=== PATIENT | male | born 1950 | race Caucasian/White ===

== ENCOUNTER 2024-09-17 11:00 | Inpatient (IN) | payer OTHER, MEDICARE ==
[~2024-09-17] VITALS: Ht 175.3 cm; Wt 74.5 kg
[~2024-09-17 11:00] MED LIST: AMLO2.5T2 PO; ATOR20TA PO; LOSA-415 PO
--- NOTE | 2024-09-17 11:26 | Physician Documentation ---
History of Present Illness ~ Chief Complaint: Stroke Alert Stated Complaint: STROKE ALERT Time Seen by MD: 11:10 Source: patient, EMS HPI 74-year-old male, history of reported TIA, who presents with stroke-like symptoms. Per EMS, the patient was at the [facility], at around 10:30 a.m., when they noticed that he seemed to have difficulty with the speech and possibly some left arm weakness. When EMS arrived, he seemed to have some difficulty with speech. He also may have had some mild left facial droop Here now in the ED, the patient denies any current symptoms. He does not really remember what happened at the [facility]. He currently denies headache, dizziness, vision changes, difficulty with speech, tingling numbness or weakness to his extremities, or other. He denies any fevers or recent infectious symptoms. He does report a history of TIA, does not know exactly what symptoms he had and says it was a couple of years ago. Medication Reconciliation Allergies: Coded Allergies: No Known Allergies (Unverified , 09/29/23) Scheduled Amlodipine* (Norvasc*), 2 TAB PO DAILY, (Reported) Discontinued Medications Atorvastatin Calcium* (Lipitor*), 1 TAB PO DAILY, (Reported) Discontinued Reason: patient no longer taking Losartan Potassium* (Cozaar*), 2 TAB PO DAILY, (Reported) Discontinued Reason: patient no longer taking Past Medical History Past Surgical History: noncontributory Patient History: Patient reports no known family medical history. Alcohol Use: Abuse Drug Use: none Occupation: retired Review of Systems Neurological: Reports: speech problem, left sided weakness; Denies: headache, dizziness Physical Exam Vital Signs: Temperature: 97.4, Source: Oral, Heart Rate: 79, Respiratory Rate: 14, BP: 173/86, Pulse Oximetry: 97, Weight: 74.500 Oxygen Flow Rate: 0 General Appearance General: This is a pleasant and frail-appearing elderly man sitting calmly in bed HEENT: Atraumatic, oropharynx appears dry Heart: Regular rate and rhythm, normal-appearing peripheral perfusion Lungs: normal work of breathing, normal oxygen saturation on room air Abdomen: Soft, nondistended, nontender all quadrants Extremities: Warm and well-perfused, no significant edema Neuro: Alert and oriented. No facial droop. Normal extraocular movements and pupils are symmetric. Normal sensation to light touch bilateral on the face. Normal sensation light touch in the arms and legs. Grossly symmetric strength in the arms and legs. He is able to stand up. Normal currlu-gl-azox testing bilateral. No focal weakness or abnormality. Psychiatric: Calm and cooperative with exam Progress Results/Orders Results/Orders Orders - DOROTHY WADDELL MD Monitor (09/17/24 11:21) 2 Large Bore Ivs (09/17/24 11:21) Chest,Single View (09/17/24 11:21) Accucheck (09/17/24 11:21) Ct Stroke Alert (09/17/24 11:21) [place] Prov.Neuro Consult (09/17/24 11:22) Urinalysis, Cult If Indicated (09/17/24 11:27) Page Hospitalist (09/17/24 13:35) Completed Orders - DOROTHY WADDELL MD Cbc/Diff (09/17/24 11:21) Electrocardiogram (09/17/24 11:21) Chest,Single View (09/17/24 11:21) Ct Stroke Alert (09/17/24 11:21) BMP (09/17/24 11:21) PTT (09/17/24 11:21) Pt Inr (09/17/24 11:21) Aspirin 81mg Chew Tablet (Aspirin 81mg C (09/17/24 12:20) Medications Received in ER Medications (Trade) Dose Ordered Sig/Cal Route PRN Reason Start Time Stop Time Status Last Admin Dose Admin (aspirin 81MG chew tablet) 324 mg ONCE ONCE PO 09/17/24 12:20 09/17/24 12:21 DC 09/17/24 13:20 324 MG Sodium Chloride 1,000 ml @ 70 mls/hr [id number] IV 09/17/24 13:50 09/17/24 17:30 70 MLS/HR Vital Signs 09/17/24 09/17/24 09/17/24 09/17/24 11:03 11:17 11:25 11:47 Temp 97.6 97.6 Pulse 84 79 72 Resp 17 14 18 B/P (MAP) 164/87 173/86 151/80 (103) Pulse Ox 97 97 95 O2 Flow Rate 0 0 09/17/24 13:20 Temp 97.6 Pulse 75 Resp 16 B/P (MAP) 134/79 (97) Pulse Ox 94 O2 Flow Rate 0 Laboratory Tests Test 09/17/24 11:26 White Blood Count 5.1 Red Blood Count 5.09 Hemoglobin 17.1 Hematocrit 48.1 Mean Corpuscular Volume 94.5 Mean Corpuscular Hemoglobin 33.6 H Mean Corpuscular Hemoglobin Concent 35.6 Red Cell Distribution Width 12.6 Platelet Count 219 Mean Platelet Volume 7.5 Neutrophils (%) (Auto) 68.9 Lymphocytes (%) (Auto) 21.1 Monocytes (%) (Auto) 7.6 Eosinophils (%) (Auto) 1.4 Basophils (%) (Auto) 1.0 Neutrophils # (Auto) 3.5 Lymphocytes # (Auto) 1.1 Monocytes # (Auto) 0.4 Eosinophils # (Auto) 0.1 Basophils # (Auto) 0.1 CBC Comment Prothrombin Time 10.6 INR International Normalized Ratio 1.0 Activated Partial Thromboplast Time 25 Coagulation Comments Sodium Level 137 Potassium Level 4.2 Chloride Level 99 Carbon Dioxide Level 27.4 Anion Gap 11 Blood Urea Nitrogen 14 Creatinine 1.05 Estimated GFR/1.73 m2 69 BUN/Creatinine Ratio 13.3 Glucose Level 115 H Calcium Level 8.5 Albumin 3.7 Chemistry Comments EKG/XRAY/CT/US/VASC/MRI EKG : Additional Comment I personally interpreted the EKG and this shows: Sinus rhythm, rate of 78, QTC 466, no STEMI Consults/PCP Consults/PCP : Additional Comment Consult: Stroke neurology consulted for evaluation. They recommended admission and treatment for stroke/TIA. Consult: I spoke to the internal medicine service, for admission in the hospital Medical Decision Making Additional info obtained from: old records Findings I reviewed the patient's past records, he does have a history of pyelonephritis with altered mental status Additional Information Differential includes stroke, TIA, intracranial hemorrhage, seizure, electrolyte derangement, infection Assessment The patient presents as a stroke alert. By time of my evaluation his symptoms seem to have mostly resolved. His history and exam seem most consistent with a TIA or possibly small stroke. Head CT without intracranial hemorrhage. Stroke Neurology consulted emergently. They recommend admission for further workup and testing. Departure Impression: Primary Impression: Transient cerebral ischemia Referrals: NO PRIMARY CARE PROVIDER (PCP) Critical Care Note Critical Care Note Critical Care Note The very real possibility of a deterioration of this patient's condition required the highest level of my preparedness for sudden, emergent intervention. I provided critical care services, which included medication orders, frequent reevaluations of the patient's condition and response to treatment, ordering and reviewing test results, and discussing the case with various consultants. Excludes time spent performing separately billable procedures. The critical care time associated with the care of the patient was 45 minutes in the management of an acute stroke/TIA Signature Scribe Signature: nile Attestation: DOROTHY Solano MD September 17, 2024 11:26
--- NOTE | 2024-09-17 11:29 | ELECTROCARDIOGRAPH REPORT ---
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
[2024-09-17 11:42] LABS: ALBUMIN 3.7 G/DL (3.4-5.0); ANION GAP 11 (8-16); BASOPHILS # (AUTO) 0.1 X10'3 (0-0.2); BLOOD UREA NITROGEN 14 MG/DL (7-18); BUN/CREATININE RATIO 13.3 (10.0-20.0); CALCIUM 8.5 MG/DL (8.5-10.1); CHLORIDE 99 MMOL/L (99-107); CREATININE 1.05 MG/DL (0.60-1.10); EOSINOPHILS # (AUTO) 0.1 X10'3 (0-0.9); GLUCOSE 115 MG/DL (70-104); LYMPHOCYTES # (AUTO) 1.1 X10'3 (1.1-4.8); POTASSIUM 4.2 MMOL/L (3.5-5.1); SODIUM 137 MMOL/L (135-145); TOTAL CARBON DIOXIDE 27.4 MMOL/L (24-32); eCRCL 61 ML/MIN; eGFR 69 ML/MIN
[2024-09-17 11:45] LABS: EOSINOPHILS % (AUTO) 1.4 % (0-6); HEMATOCRIT 48.1 % (42.0-52.0); HEMOGLOBIN 17.1 g/dl (14.0-17.9); LYMPHOCYTES % (AUTO) 21.1 % (21-51); MEAN CORPUSCULAR HEMOGLOBIN 33.6 PG (27.0-31.0); MEAN CORPUSCULAR HGB CONC 35.6 g/dL (33.0-36.5); MEAN CORPUSCULAR VOLUME 94.5 FL (78-98); MEAN PLATELET VOLUME 7.5 FL (7.4-10.4); MONOCYTES # (AUTO) 0.4 X10'3 (0-0.9); MONOCYTES % (AUTO) 7.6 % (2-12); NEUTROPHILS # (AUTO) 3.5 X10'3 (1.8-7.7); NEUTROPHILS % (AUTO) 68.9 % (42-75); PLATELET COUNT 219 X10'3 (140-440); RED BLOOD COUNT 5.09 X10'6 (4.70-6.10); RED CELL DISTRIBUTION WIDTH 12.6 % (11.5-14.5); WHITE BLOOD COUNT 5.1 X10'3 (4.5-11.0)
[2024-09-17 11:46] LABS: APTT 25 SECONDS (22-32); PROTHROMBIN TIME 10.6 SECONDS (9.0-12.0)
--- NOTE | 2024-09-17 11:57 | RADIOLOGY REPORT ---
Procedure: DI CHEST,SINGLE VIEW 09/17/2024 11:28 AM Indication: Stroke Alert Comparison: DI CHEST,SINGLE VIEW on DOS: 09/28/23 TECHNIQUE: DI CHEST,SINGLE VIEW FINDINGS: Medical devices: None. Cardiomediastinal: The heart is mildly enlarged. Pulmonary vasculature is prominent. Lungs: No focal pulmonary opacity is seen. The costophrenic angles are clear. No pneumothorax. Bones/soft tissues: No acute abnormality is noted. IMPRESSION: 1. No acute cardiopulmonary disease.
--- NOTE | 2024-09-17 12:06 | RADIOLOGY REPORT ---
EXAM: CT CT STROKE ALERT HISTORY: Stroke Alert COMPARISON: CT CT HEAD on DOS: 09/29/23 TECHNIQUE: Axial images were obtained and reformatted in coronal and sagittal planes. All CT scans at this medical facility are performed using dose modulation techniques as appropriate t o a performed exam including the following: Automated exposure control was utilized; adjustment of th e MA and/or KV according to patient size; and use of iterative reconstruction technique. CT Dose: CTDI volume is 65 mGy. Dose-length product is 1264.2 mGy*cm FINDINGS: Supratentorial Region: No evidence for large acute territorial ischemia. No intracranial hemorrhage is noted. Confluent white matter hypoattenuating foci are noted bilaterally, which typically reflect chronic microvascular ischemic changes. Posterior Fossa: No acute abnormality. Brainstem: Unremarkable. Sellar/Suprasellar Region: Unremarkable. Ventricles, Cisterns, Sulci: Age-appropriate. Orbits: Unremarkable. Paranasal Sinuses: Unremarkable. Mastoid Air Cells: Unremarkable. Vasculature: Intracranial arterial calcified plaque formation noted. Bones/Soft Tissues: No acute abnormality. Other: None. IMPRESSION: 1.No acute intracranial process. Critical Result: Stroke Alert Findings discussed with , at 09/17/2024 11:52 AM, and acknowledged receipt and understanding of the f indings. ..
[2024-09-17] MEDS: aspirin 81mg tab.chew PO ONE (13:20)
--- NOTE | 2024-09-17 13:32 | [facility] CONSULT REPORT ---
[facility] Procedure Note [facility] Procedure Note Consult [facility] Note # Demographics Consult Type: Acute Stroke Level 2 (4.5-24 hrs) Patient Location: Emergency Room First Name: JUANA Last Name: EDWIN Date of : 1950 Age: 74 Gender: Male Facility: [facility] Time of Initial Page (): 09/17/2024 11:41 Time of Return Call (): 09/17/2024 11:42 # HPI History: [id number] Patient is coming to ER difficulty talking and left arm weakness; when EMS came he had left arm weakness and left facial droop. His symptoms have resolved and lasted less than an hour. H/O TIA, HTN Duration: - resolved # Scores Level of Consciousness 1a: [0] = Alert; keenly responsive LOC Questions 1b: [0] = Answers both questions correctly LOC Commands 1c: [0] = Performs both tasks correctly Best Gaze 2: [0] = Normal Visual 3: [0] = No visual loss Facial Palsy 4: [0] = Normal symmetrical movements Motor Arm Left 5a: [0] = No drift Motor Arm Right 5b: [0] = No drift Motor Leg Left 6a: [0] = No drift Motor Leg Right 6b: [0] = No drift Limb Ataxia 7: [0] = Absent Sensory 8: [0] = Normal Best Language 9: [0] = No aphasia Dysarthria 10: [0] = Normal Extinction and Inattention 11: [0] = No abnormality NIHSS Total: 0 ABCD2 Score for TIA: [1] = Age >/= 60 years: Yes [1] = BP >/= 140/90: Yes [1] = Clinical features of the TIA: speech disturbances without weakness [1] = Duration of symptoms: 10-59 minutes [0] = History of diabetes: No ABCD2 Total: 4 # Assessment Impression: - Transient Ischemic Attack # Plan Thrombolytic/Intervention: NOT IV Thrombolysis or IA Intervention candidate Thrombolytic Exclusion (< 3 hour window): - NIHSS = 0 Intraarterial Exclusion: - clinical exam not consistent with presence of large vessel occlusion (LVO), can reconsider if LVO found on vascular imaging Modified Gus Scale (mRS) pre-stroke: [0] = No symptoms at all. Labs: - hemoglobin A1c - lipid panel - comprehensive metabolic panel - CBC Imaging: (urgency: routine): - MRI Brain without contrast Diagnostic Test: - echo without bubble study Medication: - start statin with goal of LDL < 70 - aspirin 81 mg PLUS clopidogrel (Plavix) 75 mg for 21 days, then monotherapy therafter DVT Prophylaxis: - SCD Other: - If patient has any neurological deterioration please call me back immediately - LDL < 70 - permissive hypertension - telemetry monitoring - will need event monitor or loop recorder as outpatient if atrial fibrillation not found as inpatient - neurology referral as outpatient - I have discussed my recommendations with the referring provider # Demographics First Name: JUANA Last Name: EDWIN Facility: [facility] Neuro Consult Order placed for: Yes NICOLE SANCHEZ MD September 17, 2024 13:32
[2024-09-17] MEDS ORDERED: acetaminophen 325mg tablet PO PRN ×2 (13:50)
[2024-09-17] MEDS ORDERED: magnesium sulf-water 2g/50mL 50 ML IV PRN (13:50)
[2024-09-17] MEDS ORDERED: ondansetron/PF 4mg/2ml inj IV PRN (13:50)
[2024-09-17] MEDS ORDERED: potassium Cl 40MEQ/1/2NS 520ml 520 ML IV PRN (13:50)
[2024-09-17] MEDS ORDERED: potassium Cl 20 mEq SR tablet PO PRN ×2 (13:50)
[2024-09-17] MEDS ORDERED: magnesium sulf-water 4G/100mL 100 ML IV PRN (13:50)
[2024-09-17] MEDS ORDERED: magnesium Cl slow-release 64mg tablet PO PRN (13:50)
--- NOTE | 2024-09-17 14:44 | HISTORY AND PHYSICAL-Residence ---
History & Physical Providers to CC Resident Creating Document: GODFREY RODRIGUEZ RES ~ History of Present Illness Primary Medical Doctor: kenan Reason for Admit\Complaint: LEFT JANEEN PARESIS History of Present Illness 73-year-old male with past medical history of hypertension, hyperlipidemia, urinary incontinence, previous episodes of TIA presented to the ER with a chief complaints of weakness of left lower extremity and left upper extremity. Endorses weakness of left lower extremity and left upper extremity, sudden in onset while he was in [employer] at 10:20 a.m. in the morning and lasted for 20-25 minutes and he is completely is asymptomatic in ER. He could not able to lift the left lower extremity while sitting in the chair in [employer] and left upper extremity is drooping when he tries to lift the left upper shoulder. Endorses drooping of the face on the left side for a brief period. Denied slurring of speech, deviation of angle of mouth, blurring of vision, chest pain, palpitations, shortness of breath, wheezing, syncope abdominal pain, pedal edema. Bladder and bowel is normal. Sleep and appetite is normal. Discussed code status with the patient and patient wants to be in full code. Allergies: Coded Allergies: No Known Allergies (Unverified , 09/29/23) Home Medications Home Medications Active Reported Cozaar* (Losartan Potassium) 25 Mg Tablet 2 Tab PO DAILY 30 Days Norvasc* (Amlodipine Besylate) 2.5 Mg Tablet 2 Tab PO DAILY 30 Days Lipitor* (Atorvastatin Calcium) 20 Mg Tablet 1 Tab PO DAILY 30 Days Past Medical History Past Medical History Hypertension Hyperlipidemia Urinary incontinence History of fall History of TIA Past Surgical History Surgical History Comment LEFT INDEX FINGER SURGERY RIGHT KNEE MENISCUS TEAR AND KNEE SURGERY AT THE AGE OF 19 RIGHT ELBOW DISLOCATION Family History Family History: Patient reports no known family medical history. Past Social History Social History Comment ENDORSES DRINKING FOR FOUR IPA BEERS PER DAY. Smoking: Non-Smoker Alcohol Use: Abuse Drug Use: None Lives with: Family Lives In: Home Occupation: retired ROS All Other Systems: Reviewed and Negative ROS REVIEWED IN FULL AND NEGATIVE EXCEPT FOR POSITIVE PERTINENT IN HPI Neurological: Reports: speech problem, left sided weakness; Denies: headache, dizziness Exam Vitals: Vital Signs Date Time Temp Pulse Resp B/P (MAP) Pulse Ox O2 Delivery O2 Flow Rate FiO2 09/17/24 13:20 97.6 75 16 134/79 (97) 94 0 General: General: This is a pleasant and frail-appearing elderly man lying down calmly in bed. Not in acute distress. No facial asymmetry. No drooping of eyelids. HEENT: Atraumatic, oropharynx appears dry Heart: Regular rate and rhythm, no murmurs /gallops /rubs normal-appearing peripheral perfusion Lungs: Normal breath sounds are heard throughout the lung. No crepitations and wheezing. normal work of breathing. Abdomen: Soft, nondistended, nontender all quadrants Extremities: Warm and well-perfused, no significant edema Neuro: Alert and oriented. No facial droop. Normal extraocular movements and pupils are symmetric. Normal sensation to light touch bilateral on the face. Normal sensation light touch in the arms and legs. Grossly symmetric strength in the arms and legs. He is able to stand up. Normal tone, deep tendon reflexes are intact. Normal [id number] testing bilateral. No focal weakness or abnormality. Psychiatric: Calm and cooperative with exam Diagnostic Data Last Recorded Lab Results: 09/17/24 1126 09/17/24 1126 Diagnostic Data: Laboratory Tests Test 09/17/24 11:26 Prothrombin Time 10.6 SECONDS (9.0-12.0) INR International Normalized Ratio 1.0 INR Activated Partial Thromboplast Time 25 SECONDS (22-32) Coagulation Comments CT brain Chronic microvascular ischemic changes is present Advance Care Planning Advanced Care plannin - 30 Minutes Additional Plan TIA ABCD2 SCORE IS FOUR CT showing chronic micro vascular ischemic changes Consulted tele neurologist, Walter Carmichael. Recommended for MRI, echocardiogram, aspirin 81 mg, clopidogrel 75 mg Ordered A1c, lipid panel a telemetry and loop recorder and outpatient neurological referral Ordered MRI brain and MRA, carotid Doppler, echocardiogram with a bubble study We will continue aspirin 81 mg and Plavix 70 mg for 21 days and then monotherapy thereafter as per Dr. Jacobo, tele neurologist. We are allowing permissive hypertension on telemetry monitoring SCDs for DVT prophylaxis We will be monitoring the patient on telemetry about any atrial fibrillation episodes if not found here we will recommend for outpatient follow up for event or loop recorder. HYPERTENSION Patient is on amlodipine 5 mg at home and losartan 50 mg daily at home Blood pressures are in 150s and we are allowing permissive hypertension We will continue to monitor blood pressure. HYPERLIPIDEMIA LDL goal is less than 70 Patient is on atorvastatin 20 mg p.o. daily at home ALCOHOL USE DISORDER On detox protocol Code status: Full code Diet: NPO till swallow test and then low-salt diet DVT prophylaxis: SCDs, hepari PT: Ordered Prognosis: Guarded Godfrey Rodriguez resident Date of Service: September 17, 2024 Billing Provider: CARROLL FLANAGAN MD Common Visit Codes: 71288-THPVCXD INP/OBS CARE (HIGH) Secondary Visit Codes: 15372-YARLCFXC CARE PLAN 30 MINUTES GODFREY RODRIGUEZ, [facility] September 17, 2024 14:44 CARROLL FLANAGAN MD September 18, 2024 09:35
[2024-09-17] MEDS ORDERED: haloperidol lactate 5mg/ml inj IM PRN (14:55)
[2024-09-17] MEDS ORDERED: LORazepam 1 MG tablet PO PRN (14:55)
[2024-09-17] MEDS ORDERED: LORazepam 2 mg/ml vial IV PRN (14:55)
[2024-09-17] MEDS ORDERED: dextrose 50%-water 50ml dispensing syringe IV PRN (14:55)
--- NOTE | 2024-09-17 17:02 | VASCULAR REPORT ---
Carotid Duplex Date: 09/17/2024 04:05 PM Clinical History: Stroke Comparison: None Technique: Duplex Doppler evaluation of the extracranial carotid and vertebral arteries including col or Doppler and spectral/pulsed waveform analysis was performed. Findings: RIGHT SIDE: The peak systolic velocities are 88 cm/s in the distal CCA and 89 cm/s in the proximal ICA.The ICA/CC A ratio is less than 2. The external carotid artery is patent with peak systolic velocity of 48 cm/s proximally. The right vertebral artery is not definitely visualized. LEFT SIDE: The peak systolic velocities are 48 cm/s in the distal CCA and 74 cm/s in the proximal ICA.. The ICA/ CCA ratio is less than 2. The external carotid artery is patent with peak systolic velocity of 97 cm/s proximally. There is appropriate antegrade flow in the left vertebral artery. IMPRESSION: No hemodynamically significant stenosis noted in the right carotid system. No hemodynamically significant stenosis noted in the left carotid system. Right vertebral artery is nonvisualized. Reference: Radiology 2003; 229:[id number]
[2024-09-17] MEDS: folic acid 1mg/0.2ml inj IV SCH (17:29)
[2024-09-17] MEDS: normal saline 1000ml 1,000 ML IV SCH (17:30)
--- NOTE | 2024-09-17 17:43 | RADIOLOGY REPORT ---
EXAM: MR MRI HEAD HISTORY: CVA/TIA COMPARISON: MR MRI HEAD on DOS: 10/01/23, CT CT HEAD on DOS: 09/29/23 TECHNIQUE: MRI was performed utilizing multiple appropriate imaging planes and pulse sequences. FINDINGS: SUPRATENTORIAL REGION: No evidence for acute ischemia or intracranial hemorrhage. Scattered ill-defi roberta FLAIR hyperintensities are noted within the bilateral periventricular region, dean radiata and subcortical white matter. POSTERIOR FOSSA: Unremarkable. BRAINSTEM: Unremarkable. SELLAR/SUPRASELLAR REGION: Unremarkable. VENTRICLES, CISTERNS, SULCI: Age-appropriate. ORBITS: Unremarkable. PARANASAL SINUSES: Unremarkable. MASTOID AIR CELLS: Moderate left mastoid effusion. VASCULATURE: Unremarkable. BONES/ SOFT TISSUES: Unremarkable. OTHER: None. IMPRESSION: 1. No acute intracranial process identified. 2. Moderate global cortical atrophy and chronic microvascular ischemic changes. 3. Moderate left mastoid effusion.
[2024-09-17] MEDS: heparin, porcine 5000 units/ml vial SQ SCH (20:15)
[2024-09-17] MEDS: thiamine 100mg/ml 2ml inj. IV SCH (20:15)
--- NOTE | 2024-09-17 21:40 | RADIOLOGY REPORT ---
PROCEDURE: MR MRA HEAD INDICATION: CVA/TIA Exam Date: 09/17/2024 04:47 PM COMPARISON: None TECHNIQUE: MRA head without intravenous contrast. 3D image postprocessing was performed on a dedicated workstation and images were used for interpretat ion and reporting. FINDINGS: MRA head: There is preserved enhancement within the bilateral distal internal carotid arteries. There is prese rved enhancement within the anterior and middle cerebral arteries. There is preserved enhancement wi thin the vertebral arteries, basilar artery, cerebellar arteries and posterior cerebral arteries. Th ere is no evidence of hemodynamically significant intracranial stenosis, proximal occlusion or aneury sm. No abnormal venous signal is seen. IMPRESSION: No evidence of hemodynamically significant intracranial stenosis, proximal occlusion or aneurysm.
[2024-09-17 22:00] VITALS: BP 167/91; PULSE 60; RESP 16; TEMP 96.8; O2SAT 94
[2024-09-18] VITALS (10 sets, daily range): BP systolic 130–173; BP diastolic 87–98; PULSE 77–86; RESP 16–24; TEMP 97–98.2; O2SAT 94–97
[2024-09-18 05:56] LABS: BASOPHILS # (AUTO) 0.1 X10'3 (0-0.2); EOSINOPHILS # (AUTO) 0.1 X10'3 (0-0.9); EOSINOPHILS % (AUTO) 2.6 % (0-6); HEMATOCRIT 44.6 % (42.0-52.0); HEMOGLOBIN 15.8 g/dl (14.0-17.9); LYMPHOCYTES # (AUTO) 1.3 X10'3 (1.1-4.8); LYMPHOCYTES % (AUTO) 27.5 % (21-51); MEAN CORPUSCULAR HEMOGLOBIN 33.5 PG (27.0-31.0); MEAN CORPUSCULAR HGB CONC 35.5 g/dL (33.0-36.5); MEAN CORPUSCULAR VOLUME 94.5 FL (78-98); MEAN PLATELET VOLUME 7.7 FL (7.4-10.4); MONOCYTES # (AUTO) 0.5 X10'3 (0-0.9); MONOCYTES % (AUTO) 10.8 % (2-12); NEUTROPHILS # (AUTO) 2.8 X10'3 (1.8-7.7); NEUTROPHILS % (AUTO) 58.1 % (42-75); PLATELET COUNT 196 X10'3 (140-440); RED BLOOD COUNT 4.72 X10'6 (4.70-6.10); RED CELL DISTRIBUTION WIDTH 12.8 % (11.5-14.5); WHITE BLOOD COUNT 4.9 X10'3 (4.5-11.0)
[2024-09-18 06:11] LABS: ALANINE AMINOTRANSFERASE 29 U/L (12-78); ALBUMIN 3.3 G/DL (3.4-5.0); ALKALINE PHOSPHATASE 64 IU/L (46-116); ASPARTATE AMINO TRANSFERASE 28 U/L (10-37); BILIRUBIN,TOTAL 2.8 MG/DL (0.1-1.0); BLOOD UREA NITROGEN 10 MG/DL (7-18); BUN/CREATININE RATIO 12.2 (10.0-20.0); CALCIUM 8.2 MG/DL (8.5-10.1); CHLORIDE 102 MMOL/L (99-107); CREATININE 0.82 MG/DL (0.60-1.10); GLUCOSE 103 MG/DL (70-104); POTASSIUM 3.7 MMOL/L (3.5-5.1); SODIUM 137 MMOL/L (135-145); TOTAL PROTEIN 6.5 G/DL (6.4-8.2); eCRCL 78 ML/MIN; eGFR > 90 ML/MIN
[2024-09-18 06:12] LABS: ANION GAP 7 (8-16); TOTAL CARBON DIOXIDE 27.6 MMOL/L (24-32)
--- NOTE | 2024-09-18 07:18 | CARDIOLOGY REPORT ---
APPROVED REPORT EXAM: Comprehensive 2D, Doppler, and color-flow Echocardiogram. 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 136.6 cm/s AoV VTI 24.9 cm AO Peak GR. 7.5 mmHg AO Mean GR. 4 mmHg LVOT VTI 19.30 cm LVOT Peak Anand. 90.0 cm/s YANE(VTI)/BSA 2.77 cm2/m2 YANE (VTI) 2.77 cm2 Mitral Valve MV E Velocity 51.2 cm/s MV Peak Gr. 3 mmHg MV DECEL TIME 244 ms MV A Velocity 95.9 cm/s MV PHT 56 ms E/A Ratio 0.5 MVA (PHT) 3.93 cm2 MV VMax85.9 cm/s TDI Lateral E' P. V10.76 cm/s E/Lateral E' 4.8 Tricuspid Valve TR P. Velocity 130 cm/s RAP ESTIMATE 10 mmHg TR Peak Gr. 7 mmHg RVSP 17 mmHg LEFT VENTRICLE Normal LV size and wall thickness. Overall systolic function is normal. LVEF is 70%. RIGHT VENTRICLE RV is normal size and function. ATRIA The left atrium size is normal. AORTIC VALVE AV is probably trileaflet with mild sclerosis without stenosis. No insufficiency. MITRAL VALVE Mild mitral annular calcification without stenosis. Trace regurgitation TRICUSPID VALVE Tricuspid valve is grossly normal in structure with trace regurgitation. PULMONIC VALVE Pulmonic valve is grossly normal in structure with physiologic insufficiency. GREAT VESSELS The aortic root is normal in size. The IVC is normal in size and collapses >50% with inspiration. PERICARDIUM Normal pericardium. No effusion. Other Information Study Quality: Fair due to body habitus Conclusion Normal LV size and wall thickness. Overall systolic function is normal. LVEF is 70%. RV is normal size and function. The left atrium size is normal. AV is probably trileaflet with mild sclerosis without stenosis. No insufficiency. Mild mitral annular calcification without stenosis. Trace regurgitation Tricuspid valve is grossly normal in structure with trace regurgitation. Normal pericardium. No effusion.
[2024-09-18] MEDS: aspirin 81mg, enteric-coated 1 TAB TABLET.DR PO SCH (07:21)
[2024-09-18] MEDS: clopidogrel 75mg tablet PO SCH (07:22)
[2024-09-18 08:42] LABS: CHOL/HDL RATIO 2.9 (0.00-4.99); CHOLESTEROL 160 MG/DL (0-200); HDL CHOLESTEROL 56 MG/DL (35-60); LDL CHOLESTEROL 89 MG/DL (50-100); TRIGLYCERIDES 103 MG/DL (20-135)
[2024-09-18 09:05] LABS: HEMOGLOBIN A1C 4.8 % (4.5-6.2)
[2024-09-18] MEDS: losartan 25mg tablet PO SCH (09:39)
--- NOTE | 2024-09-18 17:32 | PROGRESS NOTE ---
Daily Progress Note Providers to CC ~ Antibiotic Timeout Antibiotic Ordered?: No Subjective Patient was seen in presence of her daughter, all labs diagnostic workup and discharge plan discussed with patient and her daughter in visit today. All questions and concerns answered to the best of my professional medical knowledge. We will plan to discharge patient in a.m. once patient's blood pressure is more controlled and PT evaluation is needed before discharge. It is strongly recommended to the patient to taper or stop alcohol and risks explained. Detailed counseling done regarding uncontrolled blood pressure and risk explained. It was advised to the patient to continue to monitor his blood pressure everyday for 2-3 weeks at home along with a heart rate and showed the log document to PCP to adjust the blood pressure medication. We will plan to discharge the patient on aspirin 81 mg and Plavix for 21 days as recommended by Neurology specialist. He will go on amlodipine and losartan antihypertensive medication at home for blood pressure control. And on atorvastatin for lipid control at home. Patient's daughter is not happy with the answer and if she wants to take the patient against medical advice she can take the patient home today. Objective Vital Signs Date Time Temp Pulse Resp B/P (MAP) Pulse Ox O2 Delivery O2 Flow Rate FiO2 09/18/24 14:00 98.2 82 18 140/90 (107) 96 Room Air 09/18/24 08:00 0.0 Result Diagram: 09/18/24 0528 09/18/24 0528 General-patient not in any acute distress, alert awake oriented, age- appropriate, looks comfortable HEENT-atraumatic normocephalic, neck supple without elevated JVD, no thyromegaly or carotid bruit. No lymphadenopathy bilaterally. Eyes-no icterus or pallor seen in eyes Chest-clear to auscultation bilaterally, breathing nonlabored no tachypnea, no wheezing, no crepitation, no crackles. Heart-S1-S2 normal, regular heart rate no murmur Abdomen bowel sounds positive on auscultation, soft nondistended nontender no guarding, no rigidity Skin no active skin rash Neurology-grossly intact, nonfocal alert awake oriented Extremity- no pedal edema able to move all 4 extremities Psychiatry - patient is not confused or agitated cooperated during physical examination Coagulation Studies Laboratory Tests Test 09/17/24 11:26 Prothrombin Time 10.6 SECONDS (9.0-12.0) INR International Normalized Ratio 1.0 INR Activated Partial Thromboplast Time 25 SECONDS (22-32) Coagulation Comments Problem\Assessment\Plan TIA ABCD2 SCORE IS FOUR CT showing chronic micro vascular ischemic changes Consulted tele neurologist, Walter Carmichael. Recommended for MRI, echocardiogram, aspirin 81 mg, clopidogrel 75 mg Ordered A1c, lipid panel a telemetry and loop recorder and outpatient neurological referral Ordered MRI brain and MRA, carotid Doppler, echocardiogram with a bubble study results reviewed and discussed with patient and her daughter today We will continue aspirin 81 mg and Plavix 70 mg for 21 days and then monotherapy thereafter as per Dr. Jacobo, tele neurologist. We are allowing permissive hypertension on telemetry monitoring SCDs for DVT prophylaxis We will be monitoring the patient on telemetry about any atrial fibrillation episodes if not found here we will recommend for outpatient follow up for event or loop recorder. HYPERTENSION Patient is on amlodipine 5 mg at home and losartan 50 mg daily at home Blood pressures are in 150s and we are allowing permissive hypertension We will continue to monitor blood pressure. HYPERLIPIDEMIA LDL goal is less than 70 Patient is on atorvastatin 20 mg p.o. daily at home ALCOHOL USE DISORDER On detox protocol Code status: Full code Diet: NPO till swallow test and then low-salt diet DVT prophylaxis: SCDs, hepari PT: Ordered Prognosis: Guarded Patient was seen in presence of her daughter, all labs diagnostic workup and discharge plan discussed with patient and her daughter in visit today. All questions and concerns answered to the best of my professional medical knowledge. We will plan to discharge patient in a.m. once patient's blood pressure is more controlled and PT evaluation is needed before discharge. It is strongly recommended to the patient to taper or stop alcohol and risks explained. Detailed counseling done regarding uncontrolled blood pressure and risk explained. It was advised to the patient to continue to monitor his blood pressure everyday for 2-3 weeks at home along with a heart rate and showed the log document to PCP to adjust the blood pressure medication. We will plan to discharge the patient on aspirin 81 mg and Plavix for 21 days as recommended by Neurology specialist. He will go on amlodipine and losartan antihypertensive medication at home for blood pressure control. And on atorvastatin for lipid control at home. Patient's daughter is not happy with the answer and if she wants to take the patient against medical advice she can take the patient home today. We will plan to discharge patient in a.m. if clinically stable. Date of Service: September 18, 2024 Billing Provider: CARROLL FLANAGAN MD Common Visit Codes: [id number] INP/OBS CARE(HIGH) CARROLL FLANAGAN MD September 18, 2024 17:32
[2024-09-19 02:00] VITALS: BP 153/92; PULSE 74; RESP 18; TEMP 97.5; O2SAT 95
[2024-09-19 06:00] VITALS: BP 150/91; PULSE 78; RESP 17; TEMP 97.8; O2SAT 96
[2024-09-19 06:02] LABS: BASOPHILS % (AUTO) 1.1 % (0-1); EOSINOPHILS # (AUTO) 0.1 X10'3 (0-0.9); EOSINOPHILS % (AUTO) 2.5 % (0-6); HEMATOCRIT 44.2 % (42.0-52.0); HEMOGLOBIN 15.6 g/dl (14.0-17.9); LYMPHOCYTES # (AUTO) 1.3 X10'3 (1.1-4.8); LYMPHOCYTES % (AUTO) 28.4 % (21-51); MEAN CORPUSCULAR HEMOGLOBIN 33.5 PG (27.0-31.0); MEAN CORPUSCULAR HGB CONC 35.4 g/dL (33.0-36.5); MEAN CORPUSCULAR VOLUME 94.6 FL (78-98); MEAN PLATELET VOLUME 7.7 FL (7.4-10.4); MONOCYTES # (AUTO) 0.4 X10'3 (0-0.9); MONOCYTES % (AUTO) 9.5 % (2-12); NEUTROPHILS # (AUTO) 2.6 X10'3 (1.8-7.7); NEUTROPHILS % (AUTO) 58.5 % (42-75); PLATELET COUNT 199 X10'3 (140-440); RED BLOOD COUNT 4.67 X10'6 (4.70-6.10); RED CELL DISTRIBUTION WIDTH 12.4 % (11.5-14.5); WHITE BLOOD COUNT 4.5 X10'3 (4.5-11.0)
[2024-09-19 06:29] LABS: ALANINE AMINOTRANSFERASE 29 U/L (12-78); ALBUMIN 3.2 G/DL (3.4-5.0); ALBUMIN/GLOBULIN RATIO 1.1 (1.1-1.5); ALKALINE PHOSPHATASE 65 IU/L (46-116); ANION GAP 7 (8-16); ASPARTATE AMINO TRANSFERASE 23 U/L (10-37); BILIRUBIN,TOTAL 2.6 MG/DL (0.1-1.0); BLOOD UREA NITROGEN 9 MG/DL (7-18); BUN/CREATININE RATIO 9.7 (10.0-20.0); CALCIUM 8.4 MG/DL (8.5-10.1); CHLORIDE 103 MMOL/L (99-107); CREATININE 0.93 MG/DL (0.60-1.10); GLUCOSE 93 MG/DL (70-104); SODIUM 139 MMOL/L (135-145); TOTAL CARBON DIOXIDE 28.8 MMOL/L (24-32); TOTAL PROTEIN 6.2 G/DL (6.4-8.2); eCRCL 69 ML/MIN; eGFR 79 ML/MIN
[2024-09-19] MEDS: amLODIPine 2.5mg tablet PO SCH (07:51)
[2024-09-19] MEDS ORDERED: ATOR20TA66 PO (09:34)
[2024-09-19] MEDS ORDERED: FOLI1TAB27 PO (09:34)
[2024-09-19] MEDS ORDERED: LOSA25TA41 PO (09:34)
[2024-09-19] MEDS ORDERED: THIA50TA10 PO (09:34)
[2024-09-19] MEDS ORDERED: ASPI-1071 PO (09:34)
[2024-09-19] MEDS ORDERED: CLOP75TA34 PO (09:41)
[2024-09-19] MEDS ORDERED: MULT-1074 PO (09:43)
[2024-09-19 10:00] VITALS: BP 130/85; PULSE 77; RESP 16; TEMP 98.4; O2SAT 98
--- NOTE | 2024-09-19 18:28 | DISCHARGE SUMMARY-Residence ---
Discharge Summary Providers to Resident Creating Document: DANIAL RODRIGUEZ, JULIA ~ Discharge Summary Admission Diagnosis: TIA , stroke like symptoms Hospital Course DATE OF ADMISSION: 09/17/2024 DATE OF DISCHARGE: 09/19/2024 Chest x-ray on 09/17/[address] on 09/17/2024 FINDINGS: Supratentorial Region: No evidence for large acute territorial ischemia. No intracranial hemorrhage is noted. Confluent white matter hypoattenuating foci are noted bilaterally, which typically reflect chronic microvascular ischemic changes. Posterior Fossa: No acute abnormality. Brainstem: Unremarkable. Sellar/Suprasellar Region: Unremarkable. Ventricles, Cisterns, Sulci: Age-appropriate. Orbits: Unremarkable. Paranasal Sinuses: Unremarkable. Mastoid Air Cells: Unremarkable. Vasculature: Intracranial arterial calcified plaque formation noted. Bones/Soft Tissues: No acute abnormality. Other: None. IMPRESSION: 1. No acute intracranial process. Echocardiogram on 09/17/2024 Conclusion Normal LV size and wall thickness. Overall systolic function is normal. LVEF is 70%. RV is normal size and function. The left atrium size is normal. AV is probably trileaflet with mild sclerosis without stenosis. No insufficiency. Mild mitral annular calcification without stenosis. Trace regurgitation Tricuspid valve is grossly normal in structure with trace regurgitation. Normal pericardium. No effusion. Carotid artery ultrasound on 09/17/2024 Normal study Head MRI and MRA on 09/17/2024 FINDINGS: SUPRATENTORIAL REGION: No evidence for acute ischemia or intracranial hemorrhage. Scattered ill-defined FLAIR hyperintensities are noted within the bilateral periventricular region, dean radiata and subcortical white matter. POSTERIOR FOSSA: Unremarkable. BRAINSTEM: Unremarkable. SELLAR/SUPRASELLAR REGION: Unremarkable. VENTRICLES, CISTERNS, SULCI: Age-appropriate. ORBITS: Unremarkable. PARANASAL SINUSES: Unremarkable. MASTOID AIR CELLS: Moderate left mastoid effusion. VASCULATURE: Unremarkable. BONES/ SOFT TISSUES: Unremarkable. OTHER: None. IMPRESSION: 1. No acute intracranial process identified. 2. Moderate global cortical atrophy and chronic microvascular ischemic changes. 3. Moderate left mastoid effusion. MR angiography of the head is normal Discharge Diagnosis\Comment: TIA with the ABCD2 score of four Chronic microvascular ischemic changes Hypertension Hyperlipidemia Alcohol use disorder Operations\Procedures: None Consultants: Walter Carmichael, [facility] neurologist Complications: None Condition on DC: Stable New Medications: Atorvastatin Calcium (Atorvastatin Calcium) 20 Mg Tablet 20 MG PO DAILY for 30 Days, #30 TAB Folic Acid* (Folic Acid*) Y Tab 1 MG PO DAILY for 30 Days, #30 TAB 0 Refills Multivitamin (Multi-Vitamin Daily) 1 Each Tablet 1 TAB PO DAILY for 30 Days, #30 TAB 0 Refills Thiamine HCl (Vitamin B-1) 50 Mg Tablet 2 TAB PO DAILY for 30 Days, #60 TAB 0 Refills Aspirin (Ecotrin*) 81 Mg Tablet.dr 1 TAB PO DAILY for 30 Days, #30 TAB.SR Clopidogrel Bisulfate (Clopidogrel) 75 Mg Tablet 75 MG PO DAILY for 19 Days, #19 TAB Do not stop medication unless instructed by prescriber. Losartan Potassium (Losartan Potassium) 25 Mg Tablet 25 MG PO DAILY for 30 Days, #30 TAB Continued Medications: Amlodipine* (Norvasc*) 2.5 Mg Tablet 2 TAB PO DAILY for 30 Days, #30 TAB Discharge Summary: HPI at the time of admission :73-year-old male with past medical history of hypertension, hyperlipidemia, urinary incontinence, previous episodes of TIA presented to the ER with a chief complaints of weakness of left lower extremity and left upper extremity. Endorses weakness of left lower extremity and left upper extremity, sudden in onset while he was in [employer] at 10:20 a.m. in the morning and lasted for 20-25 minutes and he is completely is asymptomatic in ER. He could not able to lift the left lower extremity while sitting in the chair in [employer] and left upper extremity is drooping when he tries to lift the left upper shoulder. Endorses drooping of the face on the left side for a brief period. Denied slurring of speech, deviation of angle of mouth, blurring of vision, chest pain, palpitations, shortness of breath, wheezing, syncope abdominal pain, pedal edema. Bladder and bowel is normal. Sleep and appetite is normal. Discussed code status with the patient and patient wants to be in full code Course in the hospital Admitted the patient in view of cerebrovascular accident, TIA with ABCD2 squared score of four. CT showing chronic micro vascular ischemic changes. Consulted tele neurologist, Walter Carmichael. Recommended for MRI, echocardiogram, aspirin 81 mg, clopidogrel 75 mg. Lipid panel showed the LDL cholesterol -89. Evaluated with head imaging CT, MRI, carotid Doppler, echocardiogram. We will continue aspirin 81 mg and Plavix 70 mg for 21 days and then monotherapy thereafter as per Dr. Jacobo, tele neurologist. We allowed the permissive hypertension and telemetry monitoring And SCDs for DVT prophylaxis. CT imaging showed chronic microvascular ischemic changes. MRI head with angiography is negative for acute stroke workup. We allowed permissive hypertension initially. Patient was seen in presence of her daughter, all labs diagnostic workup and discharge plan discussed with patient and her daughter in visit . All questions and concerns answered to the best of my professional medical knowledge. It is strongly recommended to the patient to taper or stop alcohol and risks explained. Detailed counseling done regarding uncontrolled blood pressure and risk explained. It was advised to the patient to continue to monitor his blood pressure everyday for 2-3 weeks at home along with a heart rate and showed the log document to PCP to adjust the blood pressure medication. Examination at the time of discharge Vital Signs Date Time Temp Pulse Resp B/P (MAP) Pulse Ox O2 Delivery O2 Flow Rate FiO2 09/19/24 10:00 98.4 77 16 130/85 (100) 98 Room Air 09/19/24 08:00 0.0 General-patient not in any acute distress, alert awake oriented, age- appropriate, looks comfortable HEENT-atraumatic normocephalic, neck supple without elevated JVD, no thyromegaly or carotid bruit. No lymphadenopathy bilaterally. Eyes-no icterus or pallor seen in eyes Chest-clear to auscultation bilaterally, breathing nonlabored no tachypnea, no wheezing, no crepitation, no crackles. Heart-S1-S2 normal, regular heart rate no murmur Abdomen bowel sounds positive on auscultation, soft nondistended nontender no guarding, no rigidity Skin no active skin rash Neurology-grossly intact, nonfocal alert awake oriented Extremity- no pedal edema able to move all 4 extremities Psychiatry - patient is not confused or agitated cooperated during physical examination Laboratory Tests Test 09/17/24 20:13 09/18/24 05:28 09/18/24 07:29 09/18/24 12:45 Glucometer 137 mg/dl 111 mg/dl 137 mg/dl White Blood Count 4.9 X10'3 Red Blood Count 4.72 X10'6 Hemoglobin 15.8 g/dl Hematocrit 44.6 % Mean Corpuscular Volume 94.5 FL Mean Corpuscular Hemoglobin 33.5 PG Mean Corpuscular Hemoglobin Concent 35.5 g/dL Red Cell Distribution Width 12.8 % Platelet Count 196 X10'3 Mean Platelet Volume 7.7 FL Neutrophils (%) (Auto) 58.1 % Lymphocytes (%) (Auto) 27.5 % Monocytes (%) (Auto) 10.8 % Eosinophils (%) (Auto) 2.6 % Basophils (%) (Auto) 1.0 % Neutrophils # (Auto) 2.8 X10'3 Lymphocytes # (Auto) 1.3 X10'3 Monocytes # (Auto) 0.5 X10'3 Eosinophils # (Auto) 0.1 X10'3 Basophils # (Auto) 0.1 X10'3 CBC Comment Sodium Level 137 MMOL/L Potassium Level 3.7 MMOL/L Chloride Level 102 MMOL/L Carbon Dioxide Level 27.6 MMOL/L Anion Gap 7 Blood Urea Nitrogen 10 MG/DL Creatinine 0.82 MG/DL Estimated GFR/1.73 m2 > 90 ML/MIN BUN/Creatinine Ratio 12.2 Glucose Level 103 MG/DL Hemoglobin A1c 4.8 % Calcium Level 8.2 MG/DL Total Bilirubin 2.8 MG/DL Aspartate Amino Transf (AST/SGOT) 28 U/L Alanine Aminotransferase (ALT/SGPT) 29 U/L Alkaline Phosphatase 64 IU/L Total Protein 6.5 G/DL Albumin 3.3 G/DL Globulin 3.2 G/DL Albumin/Globulin Ratio 1.0 Triglycerides Level 103 MG/DL Cholesterol Level 160 MG/DL LDL Cholesterol 89 MG/DL HDL Cholesterol 56 MG/DL Cholesterol/HDL Ratio 2.9 Chemistry Comments Test 09/19/24 04:56 White Blood Count 4.5 X10'3 Red Blood Count 4.67 X10'6 Hemoglobin 15.6 g/dl Hematocrit 44.2 % Mean Corpuscular Volume 94.6 FL Mean Corpuscular Hemoglobin 33.5 PG Mean Corpuscular Hemoglobin Concent 35.4 g/dL Red Cell Distribution Width 12.4 % Platelet Count 199 X10'3 Mean Platelet Volume 7.7 FL Neutrophils (%) (Auto) 58.5 % Lymphocytes (%) (Auto) 28.4 % Monocytes (%) (Auto) 9.5 % Eosinophils (%) (Auto) 2.5 % Basophils (%) (Auto) 1.1 % Neutrophils # (Auto) 2.6 X10'3 Lymphocytes # (Auto) 1.3 X10'3 Monocytes # (Auto) 0.4 X10'3 Eosinophils # (Auto) 0.1 X10'3 Basophils # (Auto) 0.0 X10'3 CBC Comment Sodium Level 139 MMOL/L Potassium Level 4.0 MMOL/L Chloride Level 103 MMOL/L Carbon Dioxide Level 28.8 MMOL/L Anion Gap 7 Blood Urea Nitrogen 9 MG/DL Creatinine 0.93 MG/DL Estimated GFR/1.73 m2 79 ML/MIN BUN/Creatinine Ratio 9.7 Glucose Level 93 MG/DL Calcium Level 8.4 MG/DL Total Bilirubin 2.6 MG/DL Aspartate Amino Transf (AST/SGOT) 23 U/L Alanine Aminotransferase (ALT/SGPT) 29 U/L Alkaline Phosphatase 65 IU/L Total Protein 6.2 G/DL Albumin 3.2 G/DL Globulin 3.0 G/DL Albumin/Globulin Ratio 1.1 Chemistry Comments Discharge advice continue fup with pcp with cbc,cmp in 1 week. Follow up with neurologist in outpatient. Recommended for event monitoring in outpatient. advised to the patient to continue to monitor his blood pressure everyday for 2- 3 weeks at home along with a heart rate and showed the log document to PCP to adjust the blood pressure medication. continue on aspirin 81 mg and Plavix for 19( cpmpleted 2 days of 21 day dual aAntiplatelet trherapy) days as recommended by Neurology specialist andf then continue aspoirin 81mg daily.. continue 5mg of amlodipine daily and losartan 25mg antihypertensive medication at home for blood pressure control. continue atorvastatin 20mg for lipid control at home. fup with applications tester/cloud subject matter expert in 1 week for possible alcohol liver disease.( high bilirubin levels) continue folic acid 1 mg daily andf thiamine 100mg daily,mutivitamin daily. read adverse effects of medication prescribed. call 911 or visit er if emergency. New Medications: Atorvastatin Calcium 20 Mg Tablet Folic Acid* Y Tab Multivitamin (Multi-Vitamin Daily) 1 Each Tablet Thiamine HCl (Vitamin B-1) 50 Mg Tablet Aspirin (Ecotrin*) 81 Mg Tablet. Clopidogrel Bisulfate (Clopidogrel) 75 Mg Tablet Do not stop medication unless instructed by prescriber. Losartan Potassium 25 Mg Tablet Continued Medications: Amlodipine* (Norvasc*) 2.5 Mg Tablet *Problems/Diagnosis: (1) Transient ischemic attack (2) Hypertension (3) Hyperlipidemia (4) Alcohol use disorder Total Time Spent on D/C: > 30 Minutes Date of Service: September 19, 2024 Billing Provider: CARROLL FLANAGAN MD Common Visit Codes: 18173-MNM/OBS DISCH DAY >30min DANIAL RODRIGUEZ, JULIA September 19, 2024 18:23 CARROLL FLANAGAN MD September 19, 2024 19:08
[2024-09-22] MEDS ORDERED: folic acid 1mg tablet PO SCH (08:00)
[2024-09-22] MEDS ORDERED: thiamine 100mg tablet PO SCH (08:00)
== END 2024-09-19 12:44 | disposition home or self-care (01) | DRG 69 ==
LOC: ER 11:01 → ED HOLD 13:50 → ORTHO 4S 17:55
PROVIDERS: ADMIT Internal Medicine; ATTEND Internal Medicine
DX: G45.9 Transient cerebral ischemic attack, unspecified (principal); E78.5 Hyperlipidemia, unspecified; I10 Essential (primary) hypertension; F10.10 Alcohol abuse, uncomplicated; Y90.9 Presence of alcohol in blood, level not specified; K70.9 Alcoholic liver disease, unspecified; Z79.82 Long term (current) use of aspirin
CPT/HCPCS: 36415; 70450; 70544; 70551; 71045; 80048; 80053; 80061; 82948; 83036; 85025; 85610; 85730; 87081; 93005; 93306; 93880; 97161; 97530; 99291; A6590; G0378; J1644; J3411; J3490; J7030